=== PATIENT | male | born 1990 | race Caucasian/White ===

== ENCOUNTER 2019-08-18 18:08 | Inpatient (IN) | payer OTHER ==
--- NOTE | 2019-08-18 18:55 | PDOC ---
Rapid Medical Evaluation Chief Complaint: Shortness of Breath Time Seen by Provider: 08/18/19 18:49 Medical Evaluation: Allergies Allergy/AdvReac Type Severity Reaction Status Date / Time fish derived [Fish derived] Allergy Mild Rash Verified 08/18/19 18:49 shellfish derived Allergy Mild Rash Verified 08/18/19 18:49 [Shellfish Derived] 08/18/19 18:50 I have performed a brief in-person evaluation of this patient. The patient presents with a chief complaint of: Multiple complaints including severe mid lower back pain, b/l leg swelling and sob all started 2 days ago. No CP, diaphoresis, abd pain, acute sensory changes, LE weakness or B/B incontinence. H/o herniated discs to LS, chronic LBP, s/p remote R femur surgery w/ ya in place. Pertinent physical exam findings:Tachy and hypoxic to 88% w/ diaphoresis, oxygen improved to 98% on 6L, taken to main ED immediately I have ordered the following:ekg/labs/US/CTA The patient will proceed to the ED for further evaluation. Discharge Disposition - Diagnosis SOB (shortness of breath), Leg swelling Back pain Qualifiers: Back pain location: low back pain Chronicity: chronic Back pain laterality: unspecified Sciatica presence: without sciatica Qualified Code(s): M54.5 - Low back pain; G89.29 - Other chronic pain - Referrals - Patient Instructions - Post Discharge Activity
[2019-08-18] MEDS ORDERED: ACETAMINOPHEN 1000 MG/100 ML VIAL (NON FORMULARY) IVPB ONE (19:24)
--- NOTE | 2019-08-18 19:39 | PDOC ---
Attending Attestation - Resident Resident Name: Eduardo Haque - ED Attending Attestation I have performed the following: I have examined & evaluated the patient, The case was reviewed & discussed with the resident, I agree w/resident's findings & plan - HPI HPI: 08/18/19 20:23 Pt comes with hypoxia and feeling lousy x 2 days. He has no PMHx, other than heroin abuse and now methadone use (states that he missed his methadone) Pt states that he feels unwell. Afebrile. - Physicial Exam PE: 08/18/19 20:25 Agree with resident exam. Pt is morbidly obese Hypoxia; pt appears pale Abd soft NT ND Heart tachy - Medical Decision Making 08/18/19 21:35 Hyponatremic; +trop; CK index negative; 82K Ddimer Pt has a clear portable chest XR Pt will get CTA Pt will be placed on heparin and admitted WBC 25 with left shift 92% 08/18/19 22:22 Pt will be admitted for PE; he will be heparinized; bolus 80U/kg =9100U (well within the max of 10K) Drip and admit tele. 08/18/19 22:26 ICU called to come and eval the patient. Hospitalist paged to admit the patient. 08/18/19 22:27 Pt is aware of his situation. 08/18/19 23:24 INR 1+ 08/19/19 00:57 Patient Name: MARIE HORNER THIS IS A PRELIMINARY REPORT FROM [facility] EXAM: Bilateral lower extremity venous duplex ultrasound IMAGES: 67 DATE OF EXAM: 2019-08-18 23:45:31 REASON FOR EXAM: Rule out DVT COMPARISON: None. FINDINGS: *Extensive bilateral lower extremity DVT. No Shirley's cyst Heart Score/ECG Review - ECG Intrepretation Rhythm: Regular Rhythm - [place]: Left [place] Deviation - P and [place] Delta Wave(s) Present: No WPW: No - ST and T Early Repolarization: No Non Specific ST-T Wave changes: No Flattened T Waves: No Prolonged Q-T Interval: No - ECG Impressions Normal ECG: No Non-specific ST Elevation: No Ischemic Changes: No Tachycardia: Sinus (S1Q3)
[2019-08-18] MEDS ORDERED: ACETAMINOPHEN INJECTION 100 ML IVPB ONE (19:55)
[2019-08-18] MEDS ORDERED: ONDANSETRON 4 MG/2 ML VIAL IVPB ONE (20:02)
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
[2019-08-18] MEDS ORDERED: METHADONE (DETOX) 20 MG, METHADONE (DETOX) 5 MG PO ONE (20:07)
[2019-08-18] MEDS ORDERED: METHADONE HCL 10 MG TABLET ONE (20:11)
[2019-08-18] MEDS ORDERED: METHADONE HCL 5 MG TABLET ONE (20:12)
[2019-08-18] MEDS ORDERED: ONDANSETRON 4 MG/2 ML VIAL ONE (20:12)
[2019-08-18 20:29] LABS: BASO % 0.6 % (0-2.0); HEMATOCRIT 41.7 % (35.4-49); HEMOGLOBIN 13.6 GM/dL (11.7-16.9); LYMPH % 4.6 % (8-40); MCH 28.3 pg (25.7-33.7); MCHC 32.7 g/dl (32.0-35.9); MEAN CELL VOLUME 86.7 fl (80-96); MEAN PLT VOLUME 9.2 fl (7.5-11.1); MONO % 4.3 % (3.8-10.2); NEUT % 90.5 % (42.8-82.8); PLATELET COUNT 165 K/MM3 (134-434); RBC 4.81 M/mm3 (4.00-5.60); RDW 15.7 % (11.9-15.9); WHITE BLOOD COUNT 25.2 K/mm3 (4.0-10.0)
[2019-08-18 21:09] LABS: ALBUMIN 3.9 g/dl (3.4-5.0); BILIRUBIN,TOTAL 2.3 mg/dL (0.2-1); BLOOD UREA NITROGEN 26.3 mg/dL (7-18); CALCIUM 9.1 mg/dL (8.5-10.1); CREATININE 1.3 mg/dL (0.55-1.3); N-TERMINAL BNP 48.1 pg/ml (5-125); POTASSIUM 5.1 mmol/L (3.5-5.1); TOT PROT 8.3 g/dl (6.4-8.2)
[2019-08-18] MEDS ORDERED: HEPARIN NA (PORCINE) 5,000 UNITS/ML 1ML VIAL IVPUSH PRN (21:39)
[2019-08-18 21:41] LABS: INR 1.12 (0.83-1.09); PROTHROMBIN TIME (PATIENT) 13.2 SEC (9.7-13.0)
[2019-08-18] MEDS ORDERED: HEPARIN NA (PORCINE) 5,000 UNITS/ML 1ML VIAL IVPUSH ONE (22:07)
[2019-08-18] MEDS ORDERED: SODIUM CHLORIDE 0.9% 500 ML INFUS.BAG IV ONE (22:11)
[2019-08-18] MEDS ORDERED: HEPARIN INFUSION - 25,000 UNITS/500 ML INFUS.BAG IVPB ONE (22:18)
[2019-08-18] MEDS ORDERED: HEPARIN NA (PORCINE) 5,000 UNITS/ML 1ML VIAL ONE (22:21)
[2019-08-18] MEDS ORDERED: METOCLOPRAMIDE HCL INJECTION 10 MG/2 ML VIAL IVPB ONE (22:25)
[2019-08-18] MEDS: HEPARIN - 25,000 UNIT in SODIUM CHLORIDE 495 ML IV SCH (22:32)
[2019-08-18] MEDS ORDERED: METOCLOPRAMIDE HCL INJECTION 10 MG/2 ML VIAL ONE (22:34)
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
[2019-08-18 22:57] LABS: PLATELET ESTIMATE ADEQUATE
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
[2019-08-19] MEDS ORDERED: PIPERACILLIN/TAZOB 4.5 GM 4.5 GM/100 ML BAG IVPB ONE ×3 (00:37→15:09)
[2019-08-19] MEDS: PIPERACILLIN/TAZOB 4.5 GM 4.5 GM in DEXTROSE 5%-WATER 100 ML IVPB SCH ×5 (00:54→22:39)
[2019-08-19] MEDS ORDERED: VANCOMYCIN 1 GRAM (PRE-DOCKED) 1,000 MG/250 ML BAG IVPB ONE ×3 (01:38→17:16)
[2019-08-19] MEDS: VANCOMYCIN 1 GRAM (PRE-DOCKED) 1,000 MG/250 ML BAG IVPB SCH ×3 (01:41→17:24)
[2019-08-19 02:06] LABS: BILIRUBIN,DIRECT 0.3 mg/dL (0.0-0.2)
[2019-08-19 07:05] LABS: ALBUMIN 3.5 g/dl (3.4-5.0); BLOOD UREA NITROGEN 26.4 mg/dL (7-18); CALCIUM 8.6 mg/dL (8.5-10.1); CREATININE 1.1 mg/dL (0.55-1.3); MAGNESIUM 2.3 mg/dL (1.8-2.4); PHOSPHOROUS 3.2 mg/dL (2.5-4.9); POTASSIUM 4.6 mmol/L (3.5-5.1); TOT PROT 7.6 g/dl (6.4-8.2)
[2019-08-19] MEDS ORDERED: HEPARIN NA (PORCINE) 5,000 UNITS/ML 1ML VIAL IVPUSH PRN (08:28)
[2019-08-19] MEDS ORDERED: METHADONE HCL 10 MG TABLET ONE (08:34)
[2019-08-19] MEDS ORDERED: METHADONE HCL 40 MG DISPERSABLE TABLET ONE (08:34)
[2019-08-19] MEDS ORDERED: METHADONE HCL 5 MG TABLET ONE (08:35)
[2019-08-19] MEDS: METHADONE 160 MG, METHADONE 15 MG PO SCH (08:42)
--- NOTE | 2019-08-19 10:18 | PN ---
Progress Note (short form) - Note Progress Note: Patient is comfortable after taking methadone. He denies any shortness of breath at this time. No nausea vomiting fever chills he ate. Vital Signs Period Temp Pulse Resp BP Sys/Mccabe Pulse Ox Last 24 Hr 98.5 F 93-134 13-20 117-138/71-89 88-97 Head no headache no dizziness Ear nose throat no epistaxis Cardiovascular no chest pain Pulmonary no wheezing no coughing GI no abdominal pain Endocrine no history of diabetes hypothyroidism Neuro no history of stroke Dermatology no history of stroke Locomotor no history of joint pain Rest of review of systems are negative CBC, BMP 08/18/19 20:05 08/19/19 05:30 CTA Acute pulmonary embolism is noted Leg venous sonogram is result is pending the test is done Chest x-ray no acute pathology on the chest x-ray Physical examination Patient is comfortable HEENT normal Neck supple no JVD Lungs clear no wheezing Abdomen nontender no organomegaly bowel sounds normal Extremities no edema no cyanosis normal pulses Neurologically he is alert awake oriented, nonfocal Skin no rash noted ASSESSMENT AND PLAN: 1. Pulmonary embolism and possible sepsis - CTA chest/thorax showed "Upper and lower lobe lobar and segmental emboli are noted bilaterally. There is possible mild right ventricular dilatation which could be on the basis of right heart strain." Patient started on IV heparin drip in he ER and the results of leg doppler is pending. Leukocytosis and lactic acidosis . No obvious source of sepsis but urinalysis and RUQ sonogram are pending. Will do sepsis work up, trend LFTs, get hepatitis serology, HIV test and treat with IV NS, Vancomycin and Zosyn. Elevated troponin likely due to demand ischemia - will trend. EKG shows sinus tachycardia at 118/minute, LAE and S1Q3. CXR shows cardiomegaly. Will rule out ACS and get ECHO. Consult Pulmonary. Hyponatremia likely multifactorial. Will correct hyperglycemia and avoid hypotonic fluids. Monitor sodium q 4 hours to avoid rapid rise. Check HbA1c. Will continue comprehensive care for all of patients comorbid conditions. 2. Tobacco Use Counseled on risks associated with tobacco use. We will provide patient all the necessary assistance to facilitate smoking cessation and prescribe Nicotine patch. 3. PETER - May be partly due to rhabdomyolysis. UA pending. Get phosphate level. Will hydrate and monitor urine output. Get kidney sonogram if azotemia persists. Will consult nephrology and avoid nephrotoxic agents such as NSAIDS, aminoglycosides, contrast dyes and certain Alternative medicine products. 4. Obesity Counseled on the risks associated with obesity. Will provide patient all the necessary assistance, counseling and positive reinforcement to facilitate weight loss. Consult respiratory manager. 5. Illicit drug/Opioid/Alcohol abuse - Monitor closely for drug withdrawal. Verify methadone dose. Implement [facility] librium alcohol withdrawal protocol and do neurochecks. Implement seizure, fall and aspiration precautions. Treat with thiamine and folic acid and monitor electrolytes (Ca,Mg,K,P). Counseled patient about abstaining from illicit drugs/opioids/alcohol. Will consult torpedo specialist and refer to drug/alcohol detox upon discharge. 6. DVT prophylaxis - On IV Heparin drip for PE. 7. Advance directives - Full code Visit type - Emergency Visit Emergency Visit: Yes ED Registration Date: 08/18/19 Care time: The patient presented to the Emergency Department on the above date and was hospitalized for further evaluation of their emergent condition. - New Patient This patient is new to me today: Yes Date on this admission: 08/19/19 - Critical Care Critical Care patient: No - Discharge Referral Referred to [facility] Med P.C.: No
[2019-08-19] MEDS: NICOTINE 21 MG/24 HOURS TOPICAL PATCH TD SCH (11:37)
[2019-08-19 13:30] LABS: BASO % 0.3 % (0-2.0); HEMATOCRIT 36.3 % (35.4-49); HEMOGLOBIN 11.9 GM/dL (11.7-16.9); LYMPH % 9.3 % (8-40); MCHC 32.7 g/dl (32.0-35.9); MEAN CELL VOLUME 85.9 fl (80-96); MEAN PLT VOLUME 8.2 fl (7.5-11.1); MONO % 8.9 % (3.8-10.2); NEUT % 81.5 % (42.8-82.8); PLATELET COUNT 142 K/MM3 (134-434); RBC 4.23 M/mm3 (4.00-5.60); RDW 15.8 % (11.9-15.9); WHITE BLOOD COUNT 19.8 K/mm3 (4.0-10.0)
[2019-08-19 13:49] LABS: INR 1.1 (0.83-1.09)
[2019-08-19] MEDS ORDERED: IBUPROFEN 600 MG TABLET (FP) PO ONE (14:09)
[2019-08-19] MEDS: IBUPROFEN 600 MG TABLET (FP) PO PRN ×2 (14:16→22:47)
--- NOTE | 2019-08-19 15:57 | EKG ---
Test Reason : Blood Pressure : / mmHG Vent. Rate : 118 BPM Atrial Rate : 118 BPM P-R Int : 122 ms QRS Dur : 082 ms QT Int : 304 ms P-R-T Axes : 068 071 050 degrees QTc Int : 426 ms SINUS TACHYCARDIA LEFT ATRIAL ENLARGEMENT NONSPECIFIC ST ABNORMALITY BORDERLINE ECG NO PREVIOUS ECGS AVAILABLE Confirmed by MD JONNY, KEVAN ([id number]) on 08/19/2019 3:57:22 PM Referred By: Confirmed By:KEVAN FULLER MD
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
[2019-08-19] MEDS ORDERED: PIPERACILLIN/TAZOBACTAM 4.5 GM VIAL IVPB ONE (21:32)
[2019-08-19] MEDS ORDERED: DEXTROSE 5%-WATER 100 ML IVPB ONE (21:33)
[2019-08-19] MEDS: HEPARIN - 25,000 UNIT in SODIUM CHLORIDE 495 ML IV SCH (22:59)
[2019-08-20 00:35] VITALS: BMI 38.0
[2019-08-20] MEDS ORDERED: HEPARIN INFUSION - 25,000 UNITS/500 ML INFUS.BAG IVPB SCH (03:12)
[2019-08-20] MEDS ORDERED: METHADONE HCL 10 MG TABLET PO SCH (06:00)
[2019-08-20] MEDS ORDERED: METHADONE HCL 40 MG DISPERSABLE TABLET ONE (06:20)
[2019-08-20] MEDS ORDERED: METHADONE HCL 10 MG TABLET ONE (06:20)
[2019-08-20] MEDS: METHADONE 160 MG, METHADONE 15 MG PO SCH (06:28)
[2019-08-20 07:40] LABS: HEMATOCRIT 32.7 % (35.4-49); HEMOGLOBIN 10.8 GM/dL (11.7-16.9); MCH 28.2 pg (25.7-33.7); MCHC 33.1 g/dl (32.0-35.9); MEAN CELL VOLUME 85.4 fl (80-96); MEAN PLT VOLUME 8.7 fl (7.5-11.1); PLATELET COUNT 143 K/MM3 (134-434); RBC 3.84 M/mm3 (4.00-5.60); RDW 15.7 % (11.9-15.9); WHITE BLOOD COUNT 13.2 K/mm3 (4.0-10.0)
--- NOTE | 2019-08-20 09:00 | PN ---
Progress Note (short form) - Note Progress Note: Patient is comfortable after taking methadone. He denies any shortness of breath at this time. No nausea vomiting fever chills he ate. On eventful last night telemetry shows sinus arrhythmia at 95 bpm. No other symptoms. He is getting IV heparin since yesterday. Seen by pulmonary and no new recommendation were given. Vital Signs Period Temp Pulse Resp BP Sys/Mccabe Pulse Ox Last 24 Hr 98.1 F-98.6 F 85-114 12-20 127-142/73-88 96-98 Head no headache no dizziness Ear nose throat no epistaxis Cardiovascular no chest pain Pulmonary no wheezing no coughing GI no abdominal pain Endocrine no history of diabetes hypothyroidism Neuro no history of stroke Dermatology no history of stroke Locomotor no history of joint pain CTA Acute pulmonary embolism is noted Leg venous sonogram is result is pending the test is done Chest x-ray no acute pathology on the chest x-ray Physical examination Patient is comfortable HEENT normal Neck supple no JVD Lungs clear no wheezing Abdomen nontender no organomegaly bowel sounds normal Extremities trace edema and mild cellulitis Neurologically he is alert awake oriented, nonfocal Skin no rash noted ASSESSMENT AND PLAN: 1. Pulmonary embolism and possible sepsis - CTA chest/thorax showed "Upper and lower lobe lobar and segmental emboli are noted bilaterally. There is possible mild right ventricular dilatation which could be on the basis of right heart strain." Patient started on IV heparin drip in he ER and the results of leg doppler is pending. We will stop heparin today and start Eliquis 10 mg twice a day high-dose for 1 week followed by 5 mg twice a day he should get a limited amount of time because history of DVT and IVC filter in him. Leukocytosis and lactic acidosis . It is getting better continue antibiotics Hyponatremia likely multifactorial. Will correct hyperglycemia and avoid hypotonic fluids. Monitor sodium q 4 hours to avoid rapid rise. Check HbA1c. Will continue comprehensive care for all of patients comorbid conditions. 2. Tobacco Use Counseled on risks associated with tobacco use. We will provide patient all the necessary assistance to facilitate smoking cessation and prescribe Nicotine patch. 3. PETER -getting better continue fluids and oral 4. Obesity Counseled on the risks associated with obesity. Will provide patient all the necessary assistance, counseling and positive reinforcement to facilitate weight loss. 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 5. Illicit drug/Opioid/Alcohol abuse - Monitor closely for drug withdrawal. Verify methadone dose. Implement CIWA librium alcohol withdrawal protocol and do neurochecks. Implement seizure, fall and aspiration precautions. Treat with thiamine and folic acid and monitor electrolytes (Ca,Mg,K,P). Counseled patient about abstaining from illicit drugs/opioids/alcohol. Will consult senior accounting specialist and refer to drug/alcohol detox upon discharge. 6. DVT prophylaxis -on Eliquis 7. Advance directives - Full code Visit type - Emergency Visit Emergency Visit: Yes ED Registration Date: 08/18/19 Care time: The patient presented to the Emergency Department on the above date and was hospitalized for further evaluation of their emergent condition. - New Patient This patient is new to me today: No - Critical Care Critical Care patient: No
[2019-08-20] MEDS: NICOTINE 21 MG/24 HOURS TOPICAL PATCH TD SCH (10:37)
[2019-08-20] MEDS: APIXABAN 5 MG TABLET PO SCH ×2 (10:37→22:11)
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
[2019-08-20] MEDS: CYCLOBENZAPRINE HCL 5 MG TABLET PO PRN (17:20)
[2019-08-20] MEDS ORDERED: PT OWN MED DRAWER 7, Y5N ONE (17:28)
--- NOTE | 2019-08-20 17:51 | PN ---
Progress Note (short form) - Note Progress Note: ID CONSULT DICTATED LEUKOCYTOSIS ? LEUKEMOID RXN DVT OBSERVE OFF ANTIBIOTICS
[2019-08-20] MEDS: IBUPROFEN 600 MG TABLET (FP) PO PRN (19:12)
[2019-08-21] MEDS ORDERED: METHADONE HCL 40 MG DISPERSABLE TABLET ONE (06:22)
[2019-08-21] MEDS ORDERED: METHADONE HCL 10 MG TABLET ONE (06:22)
[2019-08-21] MEDS: METHADONE 160 MG, METHADONE 15 MG PO SCH (06:26)
[2019-08-21] MEDS: VANCOMYCIN 1,000 MG in DEXTROSE 5%-WATER - 250 ML IVPB SCH ×2 (07:18→07:20)
[2019-08-21] MEDS: PIPERACILLIN/TAZOB 4.5 GM 4.5 GM in DEXTROSE 5%-WATER 100 ML IVPB SCH ×3 (07:19→07:21)
[2019-08-21 07:48] LABS: HEMATOCRIT 33.7 % (35.4-49); HEMOGLOBIN 11.1 GM/dL (11.7-16.9); MCH 28.6 pg (25.7-33.7); MCHC 32.9 g/dl (32.0-35.9); MEAN CELL VOLUME 86.9 fl (80-96); MEAN PLT VOLUME 8.3 fl (7.5-11.1); PLATELET COUNT 180 K/MM3 (134-434); RBC 3.88 M/mm3 (4.00-5.60); RDW 15.7 % (11.9-15.9)
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
[2019-08-21] MEDS: OLANZapine 10 MG TABLET PO SCH ×3 (09:02→21:31)
[2019-08-21] MEDS: APIXABAN 5 MG TABLET PO SCH ×2 (09:02→21:30)
[2019-08-21] MEDS: NICOTINE 21 MG/24 HOURS TOPICAL PATCH TD SCH (09:03)
[2019-08-21] MEDS: IBUPROFEN 600 MG TABLET (FP) PO PRN ×2 (09:04→17:30)
[2019-08-21] MEDS: CYCLOBENZAPRINE HCL 5 MG TABLET PO PRN ×2 (09:09→21:31)
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
[2019-08-21] MEDS: LIDOCAINE 5% TOPICAL PATCH TP SCH (14:55)
--- NOTE | 2019-08-21 15:57 | ECHO ---
Name: MARIE HORNER Exam:Adult Echocardiogram Study Date: 08/21/2019 03:09 PM Age: 29 yrs Reason For Study: evaluate cardiac Diana treadwell heart strain Height: 71 in Weight: 270 lb BSA: 2.4 m2 MMode/2D Measurements & Calculations RVDd: 3.3 cm Ao root diam: 3.1 cm IVSd: 1.0 cm LA dimension: 3.6 cm LVIDd: 5.2 cm ACS: 2.3 cm LVIDs: 3.3 cm LVPWd: 1.1 cm EDV(Ulysses): 130.5 ml LVOT diam: 2.3 cm ESV(Ulysses): 45.4 ml TAPSE: 2.7 cm RV S Soham: 26.2 cm/sec Doppler Measurements & Calculations MV E max soham: 77.0 cm/sec Ao V2 max: 105.9 cm/sec MV A max soham: 67.6 cm/sec Ao max P.5 mmHg MV E/A: 1.1 Ao V2 mean: 73.0 cm/sec MV dec time: 0.24 sec Ao mean P.5 mmHg Ao V2 VTI: 15.7 cm BRIANA(I,D): 3.8 cm2 BRIANA(V,D): 3.7 cm2 LV V1 max P.6 mmHg SV(LVOT): 59.1 ml LV V1 mean P.6 mmHg LV V1 max: 94.3 cm/sec LV V1 mean: 58.2 cm/sec LV V1 VTI: 14.4 cm TR max soham: 262.0 cm/sec PA V2 max: 99.1 cm/sec TR max P.5 mmHg PA max P.9 mmHg Med Peak E' Soham: 10.0 cm/sec Med E/e': 7.7 Lat Peak E' Soham: 12.4 cm/sec Lat E/e': 6.2 Procedure The study was technically difficult with many images being suboptimal in quality. Left Ventricle The left ventricular size, thickness and function are normal. The left ventricular ejection fraction is normal. Ejection Fraction = 55-60%. Left Ventricular Filling pattern is normal for age. Right Ventricle The right ventricle is normal size. The right ventricular systolic function is normal. Atria Normal left and right atrial size and function. Mitral Valve The mitral valve is grossly normal. Tricuspid Valve The tricuspid valve is not well visualized, but is grossly normal. Aortic Valve The aortic valve is normal in structure and function. Pulmonic Valve The pulmonic valve is not well visualized. Great Vessels The aortic root is normal size. Pericardium/Pleura There is no pericardial effusion. Interpretation Summary This was essentially a normal study. Sherice Nunez 08/21/2019 03:56 PM
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
[2019-08-21] MEDS: LIDOCAINE PATCH REMOVAL MC SCH (21:30)
[2019-08-22] MEDS ORDERED: METHADONE HCL 40 MG DISPERSABLE TABLET ONE (05:17)
[2019-08-22] MEDS ORDERED: METHADONE HCL 10 MG TABLET ONE (05:18)
[2019-08-22] MEDS: METHADONE 160 MG, METHADONE 15 MG PO SCH (06:14)
[2019-08-22] MEDS: IBUPROFEN 600 MG TABLET (FP) PO PRN ×2 (06:21→18:16)
[2019-08-22 07:03] LABS: HEMATOCRIT 31.4 % (35.4-49); HEMOGLOBIN 10.4 GM/dL (11.7-16.9); MCH 28.6 pg (25.7-33.7); MCHC 33.1 g/dl (32.0-35.9); MEAN CELL VOLUME 86.4 fl (80-96); PLATELET COUNT 192 K/MM3 (134-434); RBC 3.63 M/mm3 (4.00-5.60); WHITE BLOOD COUNT 10.4 K/mm3 (4.0-10.0)
[2019-08-22 07:12] LABS: BILIRUBIN,TOTAL 1.1 mg/dL (0.2-1); BLOOD UREA NITROGEN 16.4 mg/dL (7-18); CALCIUM 8.1 mg/dL (8.5-10.1); CREATININE 0.8 mg/dL (0.55-1.3); POTASSIUM 3.9 mmol/L (3.5-5.1); TOT PROT 6.3 g/dl (6.4-8.2)
[2019-08-22] MEDS: LIDOCAINE 5% TOPICAL PATCH TP SCH (10:10)
[2019-08-22] MEDS: GABAPENTIN 300 MG CAPSULE PO SCH ×2 (10:10→21:36)
[2019-08-22] MEDS: NICOTINE 21 MG/24 HOURS TOPICAL PATCH TD SCH (10:10)
[2019-08-22] MEDS: APIXABAN 5 MG TABLET PO SCH ×2 (10:21→21:38)
[2019-08-22 12:09] LABS: INR 1.34 (0.83-1.09); PROTHROMBIN TIME (PATIENT) 15.9 SEC (9.7-13.0)
[2019-08-22 12:28] LABS: ANISOCYTOSIS 2+; MACROCYTOSIS 0; OVALOCYTE 1+; PLATELET ESTIMATE NORMAL; TEAR DROP CELLS 1+
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
[2019-08-22] MEDS: METOPROLOL TARTRATE 25 MG TABLET (FP) PO SCH ×2 (18:12→21:37)
[2019-08-22] MEDS ORDERED: PT OWN MED DRAWER 7, Y5N ONE ×2 (18:16→21:33)
[2019-08-22] MEDS: busPIRone HCL 5 MG TABLET PO SCH (21:36)
[2019-08-22] MEDS: OLANZapine 10 MG TABLET PO SCH (21:37)
[2019-08-22] MEDS: LIDOCAINE PATCH REMOVAL MC SCH (21:37)
[2019-08-23] MEDS ORDERED: METHADONE HCL 40 MG DISPERSABLE TABLET ONE (04:57)
[2019-08-23] MEDS ORDERED: METHADONE HCL 10 MG TABLET ONE (04:58)
[2019-08-23] MEDS: METHADONE 160 MG, METHADONE 15 MG PO SCH (05:23)
[2019-08-23 08:12] LABS: BASO % 0.6 % (0-2.0); EOS % 4.5 % (0-4.5); HEMATOCRIT 31.7 % (35.4-49); HEMOGLOBIN 10.3 GM/dL (11.7-16.9); HEMOGLOBIN 10.5 GM/dL (11.7-16.9); LYMPH % 24.5 % (8-40); MCH 29.1 pg (25.7-33.7); MCHC 33.2 g/dl (32.0-35.9); MCHC 33.3 g/dl (32.0-35.9); MEAN CELL VOLUME 87.3 fl (80-96); MEAN CELL VOLUME 87.5 fl (80-96); MEAN PLT VOLUME 7.8 fl (7.5-11.1); MEAN PLT VOLUME 7.9 fl (7.5-11.1); MONO % 7.3 % (3.8-10.2); NEUT % 63.1 % (42.8-82.8); PLATELET COUNT 233 K/MM3 (134-434); PLATELET COUNT 239 K/MM3 (134-434); RBC 3.55 M/mm3 (4.00-5.60); RBC 3.62 M/mm3 (4.00-5.60); RDW 15.7 % (11.9-15.9); WHITE BLOOD COUNT 10.2 K/mm3 (4.0-10.0); WHITE BLOOD COUNT 10.4 K/mm3 (4.0-10.0)
[2019-08-23 08:36] LABS: ALBUMIN 2.8 g/dl (3.4-5.0); BILIRUBIN,TOTAL 0.4 mg/dL (0.2-1); BLOOD UREA NITROGEN 15.1 mg/dL (7-18); CALCIUM 8.2 mg/dL (8.5-10.1); CREATININE 0.8 mg/dL (0.55-1.3); POTASSIUM 4.1 mmol/L (3.5-5.1); TOT PROT 6.2 g/dl (6.4-8.2)
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
[2019-08-23 10:26] LABS: ANISOCYTOSIS 0; MACROCYTOSIS 0; PLATELET ESTIMATE NORMAL
[2019-08-23] MEDS: busPIRone HCL 5 MG TABLET PO SCH ×2 (10:45→21:48)
[2019-08-23] MEDS: GABAPENTIN 300 MG CAPSULE PO SCH ×2 (10:45→21:47)
[2019-08-23] MEDS: LIDOCAINE 5% TOPICAL PATCH TP SCH (10:46)
[2019-08-23] MEDS: METOPROLOL TARTRATE 25 MG TABLET (FP) PO SCH ×2 (10:46→21:48)
[2019-08-23] MEDS: APIXABAN 5 MG TABLET PO SCH ×2 (10:46→21:48)
[2019-08-23] MEDS: NICOTINE 21 MG/24 HOURS TOPICAL PATCH TD SCH (10:46)
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
--- NOTE | 2019-08-23 11:35 | EKG ---
Test Reason : Blood Pressure : / mmHG Vent. Rate : 088 BPM Atrial Rate : 088 BPM P-R Int : 130 ms QRS Dur : 088 ms QT Int : 394 ms P-R-T Axes : 055 047 058 degrees QTc Int : 476 ms NORMAL SINUS RHYTHM NORMAL ECG WHEN COMPARED WITH ECG OF 18-AUG-2019 20:36, NO SIGNIFICANT CHANGE WAS FOUND Confirmed by Emery Webber MD ([id number]) on 08/23/2019 11:35:34 AM Referred By: DOMO FERNANDEZ DR Confirmed By:Emery Webber MD
--- NOTE | 2019-08-23 14:38 | DS ---
Physical Exam: SUBJECTIVE: Patient seen and examined at the bedside. He was provided with a rollator and has been seen by physical therapy in order to promote a safe discharge. He states that he is concerned that he wont be able to travel to get his methadone. Assured him that physical therapy has ambulated with him and he has ambulated >60 feet. He will need to follow up with a slip cover operator, crisis nurse and bonderizer as an outpatient. He does not have a primary care doctor and therefore an appointment has been made for him as follows: When: , 08/24/2019 at 2pm Time: 2pm Bring: your discharge paper work/insurance card/ photo ID. Bring your home medications. Place: [facility] 1st floor. 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 A vascular duplex shows patient has a DVT in the left lower extremity that extends from the common femoral down to the posterior tibial vein. A CTA shows upper and lower lobe lobar and segmental emboli noted bilaterally. He has been started on Eliquis per protocol and has been evaluated by a slip cover operator, crisis nurse and bonderizer during his hospital stay. A respiratory pre and post shows patient does not require any home oxygen therapy at this time. A follow up appointment has been made with a PCP and patient is urged to follow up with the referrals. He has ambulated with physical therapy today >120 feet and will be sent home with a rollator and [facility] home services. Vital Signs Period Temp Pulse Resp BP Sys/Mccabe Pulse Ox Last 24 Hr 97.8 F-98.8 F 76-145 18-20 110-159/63-86 97 PHYSICAL EXAM GENERAL: The patient is awake, alert, and fully oriented, in no acute distress. HEAD: Normal with no signs of trauma. EYES: PERRL, extraocular movements intact, sclera anicteric, conjunctiva clear. No ptosis. ENT: Ears normal, nares patent, oropharynx clear without exudates, moist mucous membranes. NECK: Trachea midline, full range of motion, supple. LUNGS: Breath sounds equal, clear to auscultation bilaterally HEART: Regular rate and rhythm, S1, S2 without murmur, rub or gallop. ABDOMEN: Soft, nontender, nondistended, normoactive bowel sounds EXTREMITIES: 2+ pulses, warm, well-perfused, no edema. NEUROLOGICAL: Normal speech, gait steady with rollator LABS Laboratory Results - last 24 hr 08/22/19 08/23/19 08/23/19 06:00 06:30 06:30 WBC 10.4 H RBC 3.55 L Hgb 10.3 L Hct 31.0 L MCV 87.3 MCH 29.0 MCHC 33.2 RDW 15.7 Plt Count 233 D MPV 7.9 Absolute Neuts (auto) Neutrophils % Neutrophils % (Manual) Band Neutrophils % Lymphocytes % Lymphocytes % (Manual) Monocytes % Monocytes % (Manual) Eosinophils % Eosinophils % (Manual) Basophils % Basophils % (Manual) Myelocytes % (Man) Promyelocytes % (Man) Blast Cells % (Manual) Nucleated RBC % Metamyelocytes Hypochromia Platelet Estimate Polychromasia Poikilocytosis Anisocytosis Microcytosis Macrocytosis PTT (Actin FS) 29.4 Sodium 137 Potassium 3.9 Chloride 103 Carbon Dioxide 29 Anion Gap 5 L BUN 16.4 Creatinine 0.8 Est GFR (CKD-EPI)AfAm 137.96 Est GFR (CKD-EPI)NonAf 119.03 Random Glucose 99 Calcium 8.1 L Total Bilirubin 1.1 H AST 49 H ALT 57 Alkaline Phosphatase 73 Total Protein 6.3 L Albumin 3.0 L TSH 8.31 H 08/23/19 08/23/19 06:30 06:30 WBC 10.2 H RBC 3.62 L Hgb 10.5 L Hct 31.7 L MCV 87.5 MCH 29.1 MCHC 33.3 RDW 16.0 H Plt Count 239 MPV 7.8 Absolute Neuts (auto) 6.5 Neutrophils % 63.1 D Neutrophils % (Manual) 56.9 Band Neutrophils % 0.0 Lymphocytes % 24.5 D Lymphocytes % (Manual) 24.5 D Monocytes % 7.3 Monocytes % (Manual) 5 Eosinophils % 4.5 D Eosinophils % (Manual) 1.9 Basophils % 0.6 Basophils % (Manual) 0.0 Myelocytes % (Man) 1 D Promyelocytes % (Man) 1 D Blast Cells % (Manual) 0 Nucleated RBC % 0 Metamyelocytes 2 D Hypochromia 0 Platelet Estimate Normal Polychromasia 1+ Poikilocytosis 0 Anisocytosis 0 Microcytosis 0 Macrocytosis 0 PTT (Actin FS) Sodium 139 Potassium 4.1 Chloride 106 Carbon Dioxide 29 Anion Gap 4 L BUN 15.1 Creatinine 0.8 Est GFR (CKD-EPI)AfAm 137.96 Est GFR (CKD-EPI)NonAf 119.03 Random Glucose 80 Calcium 8.2 L Total Bilirubin 0.4 AST 56 H ALT 74 H Alkaline Phosphatase 69 Total Protein 6.2 L Albumin 2.8 L TSH HOSPITAL COURSE: Date of Admission:08/18/19 Date of Discharge: 08/23/19 Minutes to complete discharge: 45 Discharge Summary Problems reviewed: Yes Reason For Visit: SWELLINGH OF LOWER EXTREMITY,HYPONATREMIA, Current Active Problems Acute pulmonary embolus (Acute) Anxiety (Acute) Back pain (Acute) Chronic lower back pain (Acute) DVT of lower extremity, bilateral (Acute) Depression (Acute) Elevated troponin (Acute) Hepatitis C virus (Acute) Hyperlipidemia (Acute) Hyponatremia (Acute) Leg swelling (Acute) Leukocytosis (Acute) Obesity (BMI 35.0-39.9 without comorbidity) (Acute) Polysubstance abuse (Acute) Prophylactic measure (Acute) Pulmonary embolism (Acute) SOB (shortness of breath) (Acute) Sedentary lifestyle (Acute) Condition: Improved - Instructions Diet, Activity, Other Instructions: Mrs Mcnair: You were admitted for acute shortness of breath and found to have pulmonary embolus as well as deep vein thromobis. During your hospitalization you were evaluated by a crisis nurse, bonderizer and slip cover operator. I have sent their contact information to you so that you can call for appointment. It is important that you call and make follow up appointments with them. Since you do not have a primary care doctor, we have assigned one for you. You were diagnosed with a pulmonary embolus. What is a pulmonary embolus? A pulmonary embolus are blood clots that can start in your legs and travel to your lungs. The treatment is ELIQUIS which is a blood thinner that you take TWICE PER DAY. YOU CANNOT SKIP DOSES OF THIS MEDICATION. Here is how you take the Eliquis Take Eliquis 10mg TWICE per day at 8am and 8pm UNTIL 08/26/2019. ON 08/27/2019, take Eliquis 5mg TWICE per day at 8am and 8pm indefinitely. to not stop taking this medication on your own. You will need genetic testing to find out why you developed clots. We highly recommend that you follow up with the crisis nurse and bonderizer on discharge by calling their phone numbers for an appointment. You have an appointment with a new primary care doctor as follows: When: , 08/24/2019 at 2pm Time: 2pm Bring: your discharge paper work/insurance card/ photo ID. Bring your home medications. Place: [address] [place] [address] Thank you for allowing us to care for you. Referrals: Andrew Harris MD [Staff Physician] - Shila Leonard MD [Staff Physician] - Alejandro Da Silva MD [Staff Physician] - Aparna Guerra MD [Staff Physician] - (appointment 08/24When: , 08/24/2019 at 2pm Time: 2pm Bring: your discharge paper work/insurance card/ photo ID. Bring your home medications. Place: [address] [place] [address] ) Disposition: VNS/HOME HEALTH CARE - Home Medications Comprehensive Discharge Medication List: Ambulatory Orders Bupropion HCl [Wellbutrin Xl] 300 mg PO DAILY #30 tab.er.24h 06/23/19 Buspirone HCl [Buspar -] 15 mg PO BID #60 tablet 06/23/19 Methadone [Dolophine -] 175 mg PO DAILY 08/19/19 Olanzapine [ZyPREXA -] 10 mg PO DAILY 08/19/19 Olanzapine [Zyprexa] 2.5 mg PO DAILY 08/19/19 Apixaban [Eliquis -] 10 mg PO BID #120 tablet 08/23/19 Cyclobenzaprine HCl 5 mg PO Q8H PRN tablet 08/23/19 Gabapentin [Neurontin -] 300 mg PO BID #120 capsule 08/23/19 Metoprolol Tartrate [Lopressor -] 25 mg PO BID #30 tablet 08/23/19 Problem List - Problems (1) Acute pulmonary embolus Assessment/Plan: BL PE on CTA c/w eliquis BID per protocol. Dosage of Eliquis explained to patient and the importance of not skipping doses also explained. Senior Information Security Engineer to follow up outpatient and referrals are sent. Per slip cover operator, patient will need genetic counseling to further assess why patient developed these clots. Information provided to him by the slip cover operator. Patient has an IVC Filter in place and was evaluated by vascular surgeon. No surgical interventions recommended at this time by vascular. Code(s): I26.99 - OTHER PULMONARY EMBOLISM WITHOUT ACUTE COR PULMONALE (2) Chronic lower back pain Assessment/Plan: continue non narcotic pain management. patient is on methadone. Back pain treated with lidocaine patches. Code(s): M54.5 - LOW BACK PAIN; G89.29 - OTHER CHRONIC PAIN (3) DVT of lower extremity, bilateral Assessment/Plan: on eliquis protocol. Code(s): I82.403 - ACUTE EMBOLISM AND THOMBOS UNSP DEEP VEINS OF LOW EXTRM, BI (4) Obesity (BMI 35.0-39.9 without comorbidity) Code(s): E66.9 - OBESITY, UNSPECIFIED (5) Polysubstance abuse Assessment/Plan: long history or polysubstance abuse counseled on cessation offered addiction counseling and rehab and declined no signs of withdrawal c/w thiamine/mvi/folate c/w methadone ativan prn Code(s): F19.10 - OTHER PSYCHOACTIVE SUBSTANCE ABUSE, UNCOMPLICATED (6) SOB (shortness of breath) Assessment/Plan: stable on room air, does not qualify for home oxygen. Code(s): R06.02 - SHORTNESS OF BREATH (7) Alcohol dependence Assessment/Plan: no signs of withdrawl on exam. patient is calm, cooperative and denies any tremors, hallucinations, headaches, nausea or vomiting. Code(s): F10.20 - ALCOHOL DEPENDENCE, UNCOMPLICATED (8) Cannabis dependence Assessment/Plan: on methadone. will need outpatient counseling if patient is willing. Code(s): F12.20 - CANNABIS DEPENDENCE, UNCOMPLICATED (9) Cocaine dependence Assessment/Plan: will need outpatient counseling for continued abstinence. Code(s): F14.20 - COCAINE DEPENDENCE, UNCOMPLICATED (10) Prophylactic measure Assessment/Plan: on eliquis discharge home. needs close follow up. patient urged to follow up with outpatient referrals. Code(s): Z29.9 - ENCOUNTER FOR PROPHYLACTIC MEASURES, UNSPECIFIED This patient is new to me today: No Emergency Visit: Yes ED Registration Date: 08/18/19 Care time: The patient presented to the Emergency Department on the above date and was hospitalized for further evaluation of their emergent condition. Critical Care patient: No - Discharge Referral Referred to [facility] Med P.[facility].: No
[2019-08-23 21:06] LABS: HEP B CORE AB, TOT Negative (Negative)
[2019-08-23] MEDS ORDERED: PT OWN MED DRAWER 7, Y5N ONE (21:11)
[2019-08-23] MEDS: LIDOCAINE PATCH REMOVAL MC SCH (21:48)
[2019-08-23] MEDS: OLANZapine 10 MG TABLET PO SCH (21:48)
[2019-08-23] MEDS: IBUPROFEN 600 MG TABLET (FP) PO PRN (21:51)
[2019-08-23] MEDS: CYCLOBENZAPRINE HCL 5 MG TABLET PO PRN (21:51)
[2019-08-24] MEDS ORDERED: METHADONE HCL 40 MG DISPERSABLE TABLET ONE (06:14)
[2019-08-24] MEDS ORDERED: METHADONE HCL 10 MG TABLET ONE (06:15)
[2019-08-24] MEDS: METHADONE 160 MG, METHADONE 15 MG PO SCH (06:20)
[2019-08-24 08:22] VITALS: BP 126/81; PULSE 85; TEMP 98
[2019-08-24] MEDS: NICOTINE 21 MG/24 HOURS TOPICAL PATCH TD SCH (09:28)
[2019-08-24] MEDS: LIDOCAINE 5% TOPICAL PATCH TP SCH (09:28)
[2019-08-24] MEDS: busPIRone HCL 5 MG TABLET PO SCH (09:28)
[2019-08-24] MEDS: APIXABAN 5 MG TABLET PO SCH (09:30)
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
== END 2019-08-24 13:22 | disposition home health service (06) | DRG 134 ==
LOC: JER 18:08 → JERBED 23:23 → J4W 08-19 20:04
PROVIDERS: ADMIT Internal Medicine; ATTEND Nurse Practitioner Family
DX: I26.94 Multiple subsegmental thrombotic pulmonary emboli without acute cor pulmonale (principal); E66.01 Morbid (severe) obesity due to excess calories; R09.02 Hypoxemia; E87.1 Hypo-osmolality and hyponatremia; D72.829 Elevated white blood cell count, unspecified; F41.8 Other specified anxiety disorders; I82.403 Acute embolism and thrombosis of unspecified deep veins of lower extremity, bilateral; M54.5 Low back pain; F14.20 Cocaine dependence, uncomplicated; M62.82 Rhabdomyolysis; I24.8 Other forms of acute ischemic heart disease; F11.20 Opioid dependence, uncomplicated; N17.9 Acute kidney failure, unspecified; E87.2 Acidosis; E78.5 Hyperlipidemia, unspecified; Z68.39 Body mass index [BMI] 39.0-39.9, adult; R00.0 Tachycardia, unspecified
CPT/HCPCS: 36415; 71045-TC-FY; 71275-TC; 74018-TC-FY; 76705-TC; 80053; 80061; 81241; 82248; 82550; 82553; 83036; 83605; 83721; 83735; 83880; 84100; 84443; 84484; 85025; 85027; 85250; 85260; 85303; 85379; 85384; 85610; 85730; 86704; 86706; 86707; 86708; 86709; 86803; 87040; 87340; 93005; 93010; 93306-TC; 93970-TC; 93971; 94761; 97116-GP; 97161-GP; 99284-25; J0131; J1644; Q9967